=== PATIENT | female | born 1995 | race Hispanic/Latino ===

== ENCOUNTER 2017-12-28 08:49 | Emergency (ER) | payer SELFPAY | END 2017-12-28 09:50 | disposition home or self-care (01) | LOC: ERS 08:49 | DX: J03.90 Acute tonsillitis, unspecified (principal) | CPT/HCPCS: 87081; 87430; 99283 ==

== ENCOUNTER 2019-11-16 08:28 | Outpatient (CLI) | payer OTHER ==
--- NOTE | 2019-11-16 09:12 | ULT ---
ULTRASOUND OBSTETRICAL COMPLETE: DATE: 11/16/2019 HISTORY: 24-year-old female presents for evaluation of anatomy survey. FINDINGS: number: garcia lie: Breech Maternal cervix: 4.5 cm. Closed. Placenta: Anterior. No placenta previa. Amniotic fluid volume: DEANGELO = 12.5 cm heart rate: 160 bpm The following anatomy is visualized, with no evidence of anomalies: Head, cerebellum, lateral ventricles, four-chamber heart, stomach, kidneys, cord insertion, bladder, cervical spine, thoracic spine, lumbar spine, sacrum, nose and lips, upper extremities, lower extremities, and three-vessel cord. biometry: Biparietal diameter (BPD): 4.7 cm 20 w 2 d Head circumference (HC): 17.9 cm 20 w 3 d Abdominal circumference (AC): 15.7 cm 21 w 0 d Femur length (FL): 3.2 cm 20 w 1 d Average ultrasound age (AUA): 20 w 4 d Estimated date of delivery (DEXTER): 03/31/2020 Estimated weight (EFW): 355 g +/- 52 g IMPRESSION: 1) Live 2nd trimester intrauterine gestation. 2) Estimated gestational age of 20 weeks, 4 days 3) breech lie. 4) no anatomic abnormality identified.
== END 2019-11-16 08:29 | disposition home or self-care (01) ==
LOC: BICULT 08:28
PROVIDERS: ATTEND Family Medicine
DX: Z34.82 Encounter for supervision of other normal pregnancy, second trimester (principal); O32.1XX0 Maternal care for breech presentation, not applicable or unspecified; Z3A.20 20 weeks gestation of pregnancy
CPT/HCPCS: 76805

== ENCOUNTER 2020-02-05 05:16 | Day surgery (SDC) | payer OTHER ==
[2020-02-05 05:47] VITALS: BMI 30.4
[2020-02-05 07:12] LABS: FFN Internal QC Analyzer PASS (PASS); FFN Internal QC Cassette PASS (PASS); Fetal Fibronectin Negative (Negative)
[2020-02-05] MEDS ORDERED: hydrALAZINE 20 MG/ML VIAL SLOW IVP PRN (07:41)
--- NOTE | 2020-02-05 08:14 | PRG ---
DATE OF SERVICE: 02/05/2020 TIME OF SERVICE: 0735 hours. HISTORY OF PRESENT ILLNESS: The patient presents to Labor and Delivery unit at approximately 0630 hours complaining of contractions. She denies leakage of fluid. She reports active fetus. She denies vaginal bleeding. She sees Dr. Sumner at [facility]. [employer] MANAGER HISTORY: at 39 weeks. Antepartum record not available on the unit and reports no complications this . PAST MEDICAL HISTORY: None. PAST SURGICAL HISTORY: None. ALLERGIES: DENIES. MEDICATIONS: vitamins. SOCIAL HISTORY: Denies tobacco, alcohol, or IV drug use. FAMILY HISTORY: Noncontributory. REVIEW OF SYSTEMS: Noncontributory. PHYSICAL EXAMINATION: GENERAL: female, in no acute distress. VITAL SIGNS: Temperature 98.6, pulse 85, respirations 18, blood pressure 120/72. HEENT: Within normal limits. LUNGS: Clear to auscultation bilaterally. HEART: Regular rate and rhythm. ABDOMEN: Soft and nontender. Fundal height 33. The patient is at 33 weeks' gestation by stated DEXTER. No CVA tenderness is noted. : Vulva without lesions. Vaginal exam by RN revealed a whitish discharge. Cervix that was closed, long, and high. EXTREMITIES: Without clubbing, cyanosis, or edema. Prolonged monitoring is carried out for greater than an hour, which revealed one contraction in approximately 30 minutes. Category 1 heart rate tracing with a baseline 140s to 150s, positive accels to 160s to 170s. fibronectin was collected, which was negative. VP3 is pending. IMPRESSION: No evidence of labor. Whitish discharge consistent with leukorrhea or . PLAN: Discharge home. Follow up VP3 results with Dr. Sumner at [facility] ([place], [place]). ER precautions. Job ID: [id number]
== END 2020-02-05 08:00 | disposition home health service (06) ==
LOC: L&D/OP 05:16
PROVIDERS: ATTEND Family Medicine
DX: O47.03 False labor before 37 completed weeks of gestation, third trimester (principal); Z3A.33 33 weeks gestation of pregnancy
CPT/HCPCS: 82731; 87480; 87510; 87660; 99285

== ENCOUNTER 2020-03-11 11:39 | Day surgery (SDC) | payer OTHER, SELFPAY ==
[2020-03-11 12:07] VITALS: BP 136/83; TEMP 97.6; BMI 32.9
[2020-03-11] MEDS ORDERED: hydrALAZINE 20 MG/ML VIAL SLOW IVP PRN (12:41)
--- NOTE | 2020-03-11 14:41 | HP ---
PRIMARY OB: Rajat Sumner MD CHIEF COMPLAINT: Abdominal pains. HISTORY OF PRESENT ILLNESS: The patient is a 25-year-old G2, P1 female with an intrauterine at 37 weeks and 0 days, presenting to Labor and Delivery with worsening abdominal pain and some bloody show. She reports that these pains began last night around 9 o'clock. She was unable to sleep very well and came in for evaluation. She states she feels that the pain occurs about every minute and goes away, and she feels like there are times when the pain is more intense and other times she feels least pain when she is sitting up, feels more pain with activity and movement such as rolling over in bed or getting out of bed. She denies leakage of fluid. She denies any more bloody show other than the one event. Denies urinary urgency or frequency. She denies any cough, headache, fever, chest pain, shortness of breath, nausea, vomiting, diarrhea, constipation, hip problems, knee problems , or muscle weakness. She denies skin rash. She denies again vaginal bleeding, change in discharge other than what is in the HPI and urinary urgency or frequency. PAST MEDICAL HISTORY: Negative. PAST SURGICAL HISTORY: Negative. ALLERGIES: NO KNOWN DRUG ALLERGIES. MEDICATIONS: 1. vitamins. 2. Iron. SOCIAL HISTORY: Denies drug, alcohol, or tobacco use. OB LABS: Blood type is O positive. Antibody screen is negative. She is rubella immune. Hepatitis B surface antigen is nonreactive. HIV is nonreactive. Syphilis is nonreactive in the 1st and 3rd trimester. She is GBS positive. REVIEW OF SYSTEMS: Per HPI. PHYSICAL EXAMINATION: VITAL SIGNS: Blood pressure is 136/83, temperature is 97.6, pulse of 84, and respiratory rate of 18. GENERAL: She appears to be in no acute distress. She is alert, oriented, cooperative, and pleasant to interact with. HEAD: Normocephalic, atraumatic. LUNGS: Clear to auscultation bilaterally. HEART: Has a regular rate and rhythm. ABDOMEN: Gravid and soft. I am not able to palpate contractions. EXTREMITIES: Nontender, nonedematous. CERVICAL: Per nursing staff, is 1, thick, and high. She did not appreciate any bloody show from her vaginal check. The patient has a fetus in the baseline of 130s with moderate long-term variability, positive 15 x 15 accelerations. Contractions about every 2 minutes, lasting just about a minute. ASSESSMENT AND PLAN: The patient is a 25-year-old female, G2, P1, with an intrauterine at 37 weeks and 0 days, presenting for abdominal pains and bloody show. The patient is having contractions, though has no evidence of active labor. Abdomen is soft to palpation. She has no active bleeding. Fetus has a category I tracing and reactive NST. Given the patient's distance from the hospital, which is about an hour. We will be keeping her here for 2 to 3 hours and see how this labor pattern progresses and then reassess at that time. addendum. Pt stayed for a total of six hours awaiting active labor. Pt continued in latent labor with minimal to moderate pain not requiring medication for pain control. Pt was discharged home with term labor precautions. fetus continued to have a cat 1 tracing. Job ID: [id number] [facility]
== END 2020-03-11 18:30 | disposition home health service (06) ==
LOC: L&D/OP 11:39
PROVIDERS: ATTEND Family Medicine
DX: O99.89 Other specified diseases and conditions complicating pregnancy, childbirth and the puerperium (principal); R10.9 Unspecified abdominal pain; O46.93 Antepartum hemorrhage, unspecified, third trimester; O47.1 False labor at or after 37 completed weeks of gestation; Z3A.37 37 weeks gestation of pregnancy; Z79.899 Other long term (current) drug therapy
CPT/HCPCS: 99283

== ENCOUNTER 2020-03-12 15:08 | Day surgery (SDC) | payer OTHER ==
[2020-03-12 15:37] VITALS: BMI 32.9
[2020-03-12] MEDS ORDERED: hydrALAZINE 20 MG/ML VIAL SLOW IVP PRN (16:06)
--- NOTE | 2020-03-12 16:21 | PDOC.FPROB ---
FMR OB H&P: HPI - History of Present Illness Chief Complaint: contractions, leaking fluid Indentification: 25 yo at 37.1 wga History of Present Illness: Patient presents one day after being seen here in triage for similar complaint of contractions. She was monitored her on L&D and was 2 cm without change. She says she went home and contractions began to increase again through the night. States they are about 5 min apart and increasing in intensity. The contractions will stop but then start up again. She tried drinking water and tylenol, but the contractions persisted. Denies vaginal bleeding. Endorses movement. Complains of whitish vaginal discharge that is new. She is concerned her water broke. This was experienced as a flow of discharge into the toilet, but not a large gush of fluid. Primary Care Physician: Burak FMR OB H&P: Current - Care : 2 Para: 1001 Gestational age: 37.1 wga Due date: 04/01/2020 Course/Complications: Anemia of on iron - OB Labs Blood type: O RH: positive Antibody Screen: negative HIV: negative RPR: negative HepBsAg: negative Rubella: immune GBS: positive Additional labs: records not on L&D. Dictated labs by Dr. Grove yesterday. FMR OB H&P: History - Past Medical History PMH: Hypercholesterolemia - OB History OB History: x1 at 39 weeks. Induced for high blood pressure, denies hx of preeclampsia. 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 - Social History Social History: Denies smoking, alcohol, drugs. - Family History Family History: Denies. FMR OB H&P: Medications - Current Home Medications: Medication Instructions Recorded Confirmed Type Pnv72/Iron,Gluc/Folic/Dss/Dha 1 tab PO DAILY 02/05/20 02/05/20 History [Citranatal 90 DHA Combo Pack] Allergies/Adverse Reactions: Allergies Allergy/AdvReac Type Severity Reaction Status Date / Time No Known Allergies Allergy Verified 03/12/20 15:36 FMR OB H&P: ROS - Review of Systems General: denies: fever/chills Eyes: denies: vision changes ENT: denies: sinus pain/pressure, sore throat Cardiovascular: denies: chest pain, edema Respiratory: denies: cough, shortness of breath Gastrointestinal: denies: abdominal pain, nausea, vomiting Genitourinary (Female): reports: vaginal discharge, vaginal pain, contractions, vaginal pressure. denies: dysuria, hematuria, vaginal bleeding Musculoskeletal: denies: pain Neurologic: denies: syncope, weakness, headache Integumentary: reports: itching (mild abdominal itching). denies: rash Hematologic/Lymphatic: denies: prolonged or excessive bleeding Psychological: denies: depression, anxiety FMR OB H&P: Vital Signs - Maternal Vital signs: BP 127/76 HR 96 Temp 98.2 F RR 18 98% on RA. - Heart Tones Baseline: 150 ( tachycardia to 180) Variability: moderate Acceleration: present Deceleration: absent [place] contractions every: 2 minutes approximately FMR OB H&P: Physical Exam - Physical Exam General: NAD, awake, alert and oriented HEENT: normocephalic and atraumatic, conjunctiva clear, no scleral icterus, grossly normal hearing, normal nasal mucosa Neck: trachea midline, no LAD Heart: RRR, normal S1/S2, no murmurs/rubs/gallops, no edema General: CTAB, no respiratory distress Abdomen: soft, gravid, bowel sound present, other (mild abdominal tenderness diffusely) Musculoskeletal: pulses present, FROM in all four extremities Neurological: no focal deficit Skin: no rash Lymphatic: no unusual bruising or bleeding Psychiatric: intact recent and remote memory, normal mood and affect - Pelvic Exam SVE: 2.5/50/high and posterior per RN Membranes: no pooling on speculum exam, chunky white discharge present Estimated Weight: 7 lbs FMR OB H&P: A/P - Problem List (1) Term Current Visit: Yes Status: Acute Code(s): Z34.90 - ENCNTR FOR SUPRVSN OF NORMAL , UNSP, UNSP TRIMESTER Disposition: observe on L&D for 2 hours and recheck cervix. Pending amnisure. Discussion: Date/Time: 03/12/20 1619 25 yo at 37.1 wga here for : Contractions at term - monitor on continuous tocometry and EFM for 1-2 hours - encourage PO hydration - recheck cervix in 1-2 hours. Likely in latent labor. Leakage of fluid, white discharge - r/o SROM, amnisure pending. No pooling. - VP3 collected. This H&P was discussed with Dr. Bryant, who agrees with the above documentation and plan. Signature: Marco Kern, PGY2 Addendum - Attending - Attending Attestation Date/Time: 03/12/20 0266 I personally evaluated the patient and discussed the management with Dr. Kern. I agree with the History, Examination, Assessment and Plan documented above.
[2020-03-12 16:41] LABS: Amnisure Test No Membranes Rupture (No Rupture)
[2020-03-12 16:42] LABS: Amnisure Internal Control QC ACCEPTABLE (ACCEPTABLE)
--- NOTE | 2020-03-12 17:57 | PDOC.BPN ---
- Brief Progress Note Recheck SVE: /high and posterior, moderately soft. tachycardia resolved and appeared to be prolonged accel. Maternal temp wnl. Will discharge patient home. Encouraged to keep her appt w/ Dr. Sumner next . Return precautions given.
== END 2020-03-12 18:12 | disposition home or self-care (01) ==
LOC: L&D/OP 15:08
DX: O47.1 False labor at or after 37 completed weeks of gestation (principal); O99.89 Other specified diseases and conditions complicating pregnancy, childbirth and the puerperium; N89.8 Other specified noninflammatory disorders of vagina; Z3A.37 37 weeks gestation of pregnancy
CPT/HCPCS: 84112; 87480; 87510; 87660; 99284

== ENCOUNTER 2020-03-24 08:18 | Outpatient (CLI) | payer OTHER ==
[2020-03-24 17:09] LABS: SARS-CoV-2 MS2 Positive; SARS-CoV-2 N Gene Negative; SARS-CoV-2 S Gene Negative; SARS-CoV-2 by NAA Not Detected (NotDetected); SARS-CoV-2 orf1ab Negative
== END 2020-03-24 08:19 | disposition home or self-care (01) ==
LOC: LABSCS 08:18
PROVIDERS: ATTEND Family Medicine
DX: Z20.828 Contact with and (suspected) exposure to other viral communicable diseases (principal)
CPT/HCPCS: 87635; U0003

== ENCOUNTER 2020-03-27 19:15 | Inpatient (IN) | payer OTHER, SELFPAY ==
[~2020-03-27 19:15] MED LIST: Bupivacaine/Epinephrine 0.25% 30 ML VIAL ONE
[2020-03-27 20:36] VITALS: BMI 33.6
[2020-03-27] MEDS ORDERED: NS / Oxytocin 40 units/1000ml 1,000 ML IV PRN (21:57)
[2020-03-27] MEDS ORDERED: Diphenoxylate HCl/Atropine Tablet PO PRN (21:57)
[2020-03-27] MEDS ORDERED: Butorphanol Tartrate 1 MG/ML VIAL SLOW IVP PRN (21:57)
[2020-03-27] MEDS ORDERED: Lidocaine 1% (PF) 30 ML VIAL SC PRN (21:57)
[2020-03-27] MEDS ORDERED: HYDROcodone/Acetaminophen 5/325 mg Tablet PO PRN (21:57)
[2020-03-27] MEDS ORDERED: Ondansetron PF 4 MG/2 ML Vial IVP PRN (21:57)
[2020-03-27] MEDS ORDERED: Carboprost 250 MCG/ML AMP IM PRN (21:57)
[2020-03-27] MEDS ORDERED: Promethazine HCl 25 MG/ML VIAL IM PRN (21:57)
[2020-03-27] MEDS ORDERED: Misoprostol 200 MCG TAB PR PRN (21:57)
[2020-03-27] MEDS ORDERED: Ibuprofen 800 MG TAB PO PRN (21:57)
[2020-03-27] MEDS ORDERED: hydrALAZINE 20 MG/ML VIAL SLOW IVP SCH (22:00)
[2020-03-27] MEDS ORDERED: NS w/ Oxytocin 10 units 500 ML IV SCH (22:00)
[2020-03-27] MEDS: Lactated Ringer's 1,000 ML IV SCH (22:40)
[2020-03-27 22:52] LABS: Hemoglobin 13.1 g/dL (12.0-16.0); Mean Corpuscular HGB CONC 33.6 g/dL (32.0-36.0); Mean Corpuscular Volume 80.3 fL (78.0-98.0); Mean Platelet Volume 8.1 fL (7.4-10.4); Platelet Count 347 thou/uL (130-400); RBC Distribution Width 13.3 % (11.5-14.5); Red Blood Cell (RBC) Count 4.84 mill/uL (4.20-5.40)
[2020-03-27 23:30] LABS: Syphilis Antibody Nonreactive (Nonreactive); Syphilis Antibody Index 0.04 S/CO (<1.00 Non-Reactive)
[2020-03-27 23:50] LABS: HBSAg Index 0.13 S/CO (0-0.99); Hep B Surf Ag Non-Reactive S/CO (NonReactive)
[2020-03-28] MEDS ORDERED: Fentanyl 4 mcg/Bup 0.1% Cadd 100 ML ONE ×2 (00:27→09:22)
[2020-03-28] MEDS ORDERED: EPHEDRINE 25 MG/5 ML SYRINGE SLOW IVP PRN (01:13)
[2020-03-28] MEDS ORDERED: Promethazine HCl 25 MG/ML VIAL IM PRN (01:13)
[2020-03-28] MEDS ORDERED: Ondansetron PF 4 MG/2 ML Vial IVP PRN ×2 (01:13→13:25)
[2020-03-28] MEDS ORDERED: Acetaminophen 325 MG TAB PO PRN (01:13)
[2020-03-28] MEDS ORDERED: Lactated Ringer's 500 ML IV PRN (01:13)
[2020-03-28] MEDS ORDERED: Naloxone HCl 0.4 mg/ml Vial IVP PRN ×2 (01:13)
[2020-03-28] MEDS ORDERED: diphenhydrAMINE 50 MG/ML VIAL IVP PRN (01:13)
[2020-03-28] MEDS ORDERED: Fentanyl 4 mcg/Bupivacaine 0.1% Cassette 100 ML EPIDURAL SCH (01:15)
[2020-03-28] MEDS ORDERED: Communication Order-Pharmacy FS SCH (01:15)
[2020-03-28] MEDS: Lactated Ringer's 1,000 ML IV SCH ×2 (01:16→09:32)
[2020-03-28] MEDS ORDERED: NS w/ Oxytocin 10 units 500 ML IV SCH (04:00)
[2020-03-28] MEDS ORDERED: Lidocaine 1% (PF) 30 ML VIAL ONE (12:31)
[2020-03-28] MEDS ORDERED: NS / Oxytocin 40 units/1000ml 1,000 ML ONE (12:31)
[2020-03-28] MEDS ORDERED: cloNIDine 0.1 MG TAB PO PRN (13:10)
[2020-03-28] MEDS ORDERED: Bisacodyl 10 MG SUPP PR PRN (13:25)
[2020-03-28] MEDS ORDERED: Preparation H Ointment 28 GM TUBE PR PRN (13:25)
[2020-03-28] MEDS ORDERED: hydrALAZINE 20 MG/ML VIAL SLOW IVP PRN (13:25)
[2020-03-28] MEDS ORDERED: NS / Oxytocin 40 units/1000ml 1,000 ML IV SCH (13:25)
[2020-03-28] MEDS ORDERED: Adacel (T-DAP) 0.5 ML SYRINGE IM ONE (13:25)
[2020-03-28] MEDS ORDERED: Lanolin Ointment 7 GM TUBE TOP PRN (13:25)
[2020-03-28] MEDS ORDERED: Milk Of Magnesia 30 ML UDCUP PO PRN (13:25)
[2020-03-28] MEDS ORDERED: diphenhydrAMINE 25 MG CAP PO PRN (13:25)
[2020-03-28] MEDS ORDERED: Benzocaine-Menthol 82.5 ML CAN TOP PRN (13:25)
[2020-03-28] MEDS ORDERED: HYDROcodone/Acetaminophen 5/325 mg Tablet PO PRN (13:25)
[2020-03-28] MEDS: Ibuprofen 800 MG TAB PO SCH ×2 (13:49→21:39)
[2020-03-28] MEDS: Ferrous Sulfate 325 MG TAB PO SCH (17:27)
[2020-03-28] MEDS: Docusate Calcium (SURFAK) 240 MG CAP PO SCH (21:39)
[2020-03-29] MEDS: Ibuprofen 800 MG TAB PO SCH ×2 (05:13→13:35)
[2020-03-29] MEDS: Docusate Calcium (SURFAK) 240 MG CAP PO SCH (08:11)
[2020-03-29] MEDS: HYDROcodone/Acetaminophen 5/325 mg Tablet PO PRN ×2 (08:11→18:00)
[2020-03-29] MEDS: Ferrous Sulfate 325 MG TAB PO SCH ×2 (08:13→16:18)
[2020-03-29] MEDS ORDERED: Prenatal Vitamin 1 TAB PO SCH (09:00)
[2020-03-29 12:35] VITALS: BP 119/66; TEMP 98
== END 2020-03-29 19:25 | disposition home or self-care (01) | DRG 807 ==
LOC: L&D 20:20 → 3SW 03-28 16:11
PROVIDERS: ADMIT Family Medicine; ATTEND Family Medicine
PROC: 10907ZC Drainage of Amniotic Fluid, Therapeutic from Products of Conception, Via Natural or Artificial Opening (ICD-10-PCS; principal; 2020-03-28)
PROC: 10E0XZZ Delivery of Products of Conception, External Approach (ICD-10-PCS; 2020-03-28)
PROC: 3E0P7VZ Introduction of Hormone into Female Reproductive, Via Natural or Artificial Opening (ICD-10-PCS; 2020-03-28)
PROC: 3E033VJ Introduction of Other Hormone into Peripheral Vein, Percutaneous Approach (ICD-10-PCS; 2020-03-28)
PROC: 0HQ9XZZ Repair Perineum Skin, External Approach (ICD-10-PCS; 2020-03-28)
DX: O14.94 Unspecified pre-eclampsia, complicating childbirth (principal); Z37.0 Single live birth; Z3A.39 39 weeks gestation of pregnancy; O70.0 First degree perineal laceration during delivery
CPT/HCPCS: 36415; 51702; 82570; 84156; 85027; 86780; 86850; 86900; 86901; 87340; J0595; J2001; J2590

== ENCOUNTER 2021-08-09 18:45 | Emergency (ER) | payer SELFPAY ==
[2021-08-09] MEDS ORDERED: Acetaminophen 500 MG TAB ONE (20:23)
== END 2021-08-09 20:42 | disposition home or self-care (01) ==
LOC: ERS 18:45
DX: S21.002A Unspecified open wound of left breast, initial encounter (principal); J02.9 Acute pharyngitis, unspecified
CPT/HCPCS: 87081; 87430; 99283

== ENCOUNTER 2023-02-27 13:24 | Emergency (ER) | payer SELFPAY ==
[2023-02-27 14:18] LABS: Bilirubin Negative (Negative); Blood, Urine Trace (Negative); CAUTI Indications for Culture Pelvic or flank pain; Clarity Turbid (Clear); Glucose, Urine (Dipstick) Normal (Negative); Ketone, Urine 10 mg/dL (Negative); Leukocyte Negative Leu/uL (Negative); Mucous/LPF 1+ LPF (<2+); Nitrite Negative (Negative); Protein, Urine (Dipstick) 50 mg/dL (Neg-Trace); RBC/HPF 0-3 HPF (0-3); Renal Epithelial 0-3 HPF (None Seen); Urobilinogen Normal mg/dL (Less than 2); Yeast-Budding 1+ HPF (None Seen); pH, Urine 6.5 (5.0-9.0)
[2023-02-27 14:20] LABS: Bacteria/HPF 1+ HPF (None Seen)
[2023-02-27 14:21] LABS: Urine Culture Reflex No No
[2023-02-27 14:28] LABS: #Monocytes 0.5 thou/uL (0.11-0.59); #Neutrophils 10.6 thou/uL (1.40-6.50); %Basophils 0.2 % (0.0-1.0); %Lymphocytes 5.1 % (21.0-51.0); %Monocytes 4.2 % (0.0-10.0); Hematocrit 44.8 % (36.0-47.0); Hemoglobin 14.8 g/dL (12.0-16.0); Mean Corpuscular Hemoglobin 27.4 pg (27.0-31.0); Mean Corpuscular Volume 82.8 fl (78.0-98.0); Mean Platelet Volume 9.3 fL (7.4-10.4); Platelet Count 271 10x3/uL (130-400); RBC Distribution Width 12.4 % (11.5-14.5); Red Blood Cell (RBC) Count 5.41 mill/uL (4.20-5.40); White Blood Cell (WBC) Count 11.8 10x3/uL (4.8-10.8)
[2023-02-27 14:34] LABS: BHCG - Serum Negative (NEGATIVE); Pregs Control Background? CLEAR/WHITE (CLR/WHITE); Pregs Control Bar Appear? YES (CONTROL BAR)
[2023-02-27 14:51] LABS: ALT (SGPT) 115 U/L (8-55); AST (SGOT) 83 U/L (5-34); Albumin 4.8 g/dL (3.5-5.0); Alkaline Phosphatase 95 U/L (40-110); Anion Gap 17 mmol/L (10-20); BUN (Urea Nitrogen) 5 mg/dL (7.0-18.7); Bilirubin, Total 0.5 mg/dL (0.2-1.2); Calc. Creatinine Clearance 0 mL/min (70-130); Calcium 9.5 mg/dL (7.8-10.44); Carbon Dioxide 23 mmol/L (22-29); Chloride 102 mmol/L (98-107); Estimated GFR 100; Globulin 4.3 g/dL (2.4-3.5); Glucose 78 mg/dL (70-105); Lipase 10 U/L (8-78); Potassium 3.7 mmol/L (3.5-5.1); Protein, Total 9.1 g/dL (6.0-8.3); Sodium 138 mmol/L (136-145)
== END 2023-02-27 17:30 | disposition home or self-care (01) ==
LOC: ERS 13:24
DX: N39.0 Urinary tract infection, site not specified (principal); R74.01 Elevation of levels of liver transaminase levels
CPT/HCPCS: 76705; 76856; 80053; 81001; 83690; 84703; 85025

== ENCOUNTER 2023-05-02 01:16 | Emergency (ER) | payer SELFPAY | END 2023-05-02 03:35 | disposition home or self-care (01) | LOC: ERS 01:16 | DX: K08.89 Other specified disorders of teeth and supporting structures (principal); N64.52 Nipple discharge | CPT/HCPCS: 99282 ==